=== PATIENT | female | born 1980 | race Two or more races ===

== ENCOUNTER 2021-10-30 20:40 | Emergency (ER) | payer OTHER ==
[~2021-10-30] VITALS: Ht 167.6 cm; Wt 99.8 kg
[2021-10-30 23:25] VITALS: BP 144/87
== END 2021-10-30 23:26 | disposition home or self-care (01) ==
LOC: ER 20:43
DX: M62.838 Other muscle spasm (principal); M54.2 Cervicalgia; M25.512 Pain in left shoulder
CPT/HCPCS: 71046; 93005